=== PATIENT | female | born 1955 | race Caucasian/White ===

== ENCOUNTER 2020-05-09 10:28 | Emergency (ER) | payer MEDICARE, SELFPAY ==
--- NOTE | ~2020-05-09 | US_ITS ---
EXAMINATION: US right upper quadrant DATE: 05/09/2020 11:31 INDICATION: Postprandial epigastric pain. TECHNIQUE: Multiple grayscale and Doppler ultrasound images of the abdomen were obtained. COMPARISON: CT abdomen and pelvis dated 06/20/2017 FINDINGS: The pancreatic head and body are normal in appearance. The pancreatic tail is not visualized. Liver has normal echogenicity and contour, with a smooth surface. No liver lesion identified. No intrahepat ic biliary duct dilation suspected. Portal venous flow was seen in the hepatopetal, normal direction and has normal Doppler waveform. The gallbladder is normal in appearance. There is no cholelithiasis . The common bile duct measures 3 mm, which is normal. Sonographic Bustillo sign was reported as negati ve by the qa software test engineer. IMPRESSION: 1. Normal right upper quadrant ultrasound. Reviewed, dictated and finalized at location A.
--- NOTE | ~2020-05-09 | CT_ITS ---
EXAMINATION: CTA chest PE protocol EXAM DATE: 05/09/2020 16:53 INDICATION: Epigastric chest pain. TECHNIQUE: Spiral CTA of the chest (pulmonary arteries) was performed with 100 cc Omnipaque 350 intr avenous contrast injection. Images were acquired during the pulmonary arterial phase. Coronal maxi mum intensity projection 3D-reconstructions were created by the technologist on dedicated workstation . Axial, coronal and sagittal reformatted images were reviewed. The dose-length product (DLP) for t his examination was 674.16 mGy-cm. The exposure was tailored according to patient size (auto mA exp osure control), and iterative reconstruction (ASIR) was used as additional dose reduction technique. There is no prior study for comparison. FINDINGS: Pulmonary arteries are well opacified and without intraluminal filling defects. No thora cic aortic dissection. The lungs are clear. There are no pleural or pericardial effusions. Trach eobronchial tree is patent. There is no mediastinal, hilar or axillary lymphadenopathy. There is no pneumothorax. Heart normal in size. There is mild coronary arterial calcification, arterial sc lerosis. There is large sliding gastroesophageal hiatal hernia. Upper abdomen is unremarkable. The re is mild thoracic spondylosis without osteoblastic or osteolytic lesions identified. IMPRESSION: 1. No pulmonary emboli or acute intrathoracic findings. 2. Intrathoracic stomach. Reviewed, dictated and finalized at location A.
[2020-05-09 10:39] VITALS: BP 145/75; PULSE 99; RESP 18; TEMP 36.4; O2SAT 100
--- NOTE | 2020-05-09 10:59 | ECG_ITS ---
Measurements Intervals [place] Rate: 74 P: 34 UT: 195 QRS: 31 QRSD: 87 T: 21 QT: 388 QTc: 432 Interpretive Statements SINUS RHYTHM BASELINE ARTIFACT- I, II, III, AVR, AVL NORMAL ECG Electronically Signed On 05-09-2020 11:37:38 CDT by Maged العلي D.O.
--- NOTE | 2020-05-09 11:00 | ED.GENADULT ---
HPI - General Adult General Chief complaint: Abdominal Pain Stated complaint: poss gallbladder attack Time Seen by Provider: 05/09/20 10:40 Source: patient History of Present Illness HPI narrative: Patient is 64 y/o female complaining of epigastric pain starting 1-2 hours ago. She states her pain was like a pressure and it radiated to her chest and right shoulder. Pain lasted about 10 minutes and is resolved currently. She rates her pain as 8/10 when it occurred. She states that she has been having similar pain intermittent for 1 month, and it tends to occur after eating. She has some nausea, but no vomiting or diarrhea. Related Data Allergies Allergy/AdvReac Type Severity Reaction Status Date / Time Penicillins Allergy Unknown Unknown Verified 05/09/20 10:43 Review of Systems Constitutional: Constitutional: Denies chills, Denies fever(s), Denies headache(s) and Denies weakness Eyes: Eyes: Denies blurry vision ENT: Denies headache(s) and Denies neck pain Cardiovascular: Cardiovascular: Reports chest pain and Denies dyspnea Respiratory: Respiratory: Denies cough and Denies dyspnea Gastrointestinal: Gastrointestinal: Reports abdominal pain, Denies diarrhea, Reports nausea and Denies vomiting Genitourinary: Genitourinary: Denies hematuria and Denies dysuria Musculoskeletal: Musculoskeletal: Denies back pain and Denies neck pain Neurologic: Denies headache(s) and Denies weakness PMFSH Family History Family History Father Family history of diabetes mellitus in first degree relative Carcinoma of colon Sibling Family history of diabetes mellitus in first degree relative Diabetes mellitus Mother Family history of lung cancer Other Family history of lung disease Family history of malignant neoplasm Social History Social History Smoking status: Never smoker Second hand tobacco smoke exposure: No Alcohol intake: current Exam Const: General: no acute distress and well developed Orientation/consciousness: oriented to person, oriented to place, oriented to time and patient oriented x3 HENMT: Head: normocephalic Ears: external ears normal General nose exam: Normal external nose present Eyes: General: appearance normal, both eyes and all related structures Conjunctivae: conjunctivae normal Neck: Neck: normal visual inspection and full ROM Chest: Chest palpation & inspection: normal inspection of the chest and no tenderness Resp: Effort & Inspection: normal respiratory effort Auscultation: clear to auscultation bilaterally Cardio: Rate: regular rate Rhythm: regular rhythm GI: GI Palp: No abdominal tenderness and Yes Soft to palpation Skin: General skin exam: normal color and turgor normal Neuro: General: oriented to person, oriented to place, oriented to time and patient oriented x3 Cognition (Neuro): normal cognition Extrem: General: normal to inspection, full ROM and no pedal edema Psych: Appearance: grossly normal Mental Status: mental status grossly normal Affect: normal affect Course Vital Signs Vital signs: Vital Signs Temperature 36.4 C 05/09/20 10:39 Pulse Rate 99 05/09/20 10:39 Respiratory Rate 18 05/09/20 10:39 Blood Pressure 145/75 H 05/09/20 10:39 Pulse Oximetry 100 05/09/20 10:39 Temperature 36.4 C 05/09/20 10:39 Pulse Rate 80 05/09/20 17:28 Respiratory Rate 18 05/09/20 17:28 Blood Pressure 135/85 05/09/20 17:28 Pulse Oximetry 99 05/09/20 17:28 Medical Decision Making Vital Signs Vital Signs: Vital Signs Temperature 36.4 C 05/09/20 10:39 Pulse Rate 99 05/09/20 10:39 Respiratory Rate 18 05/09/20 10:39 Blood Pressure 145/75 H 05/09/20 10:39 Pulse Oximetry 100 05/09/20 10:39 Temperature 36.4 C 05/09/20 10:39 Pulse Rate 80 05/09/20 17:28 Respiratory Rate 18 05/09/20 17:28 Blood Pressure 135/85 1
[2020-05-09 11:18] LABS: Add Urine Microscopic? YES; Appearance Urine Clear (Clear); Bilirubin Urine Negative (Negative); Blood Urine Negative (Negative); Color Urine Straw (Yellow); Glucose Urine UA Negative (Negative); Ketones Urine Negative (Negative); Leukocyte Esterase Ur Trace LEU/UL (Negative); Nitrate Urine Negative (Negative); Protein Urine Negative (Negative); RBC Urine 0-2 /hpf (0-2); Specific Grav Ur 1.005 (1.001-1.035); Squamous Epithelial Cell Urine Moderate /hpf (Few); Urobilinogen Urine Negative mg/dL (<2.0)
[2020-05-09 11:26] LABS: Alanine Aminotransferase 25 U/L (4-35); Albumin Level 4.5 g/dL (3.5-5.1); Alkaline Phosphatase 125 U/L (38-126); Anion Gap 7 mmol/L (8-16); Aspartate Amino Transferase 40 U/L (14-36); Bilirubin,Total 0.8 mg/dL (0.2-1.3); Blood Urea Nitrogen 17 mg/dL (7-17); Calcium 10.1 mg/dL (8.4-10.2); Carbon Dioxide 28 mmol/L (22-30); Chloride 103 mmol/L (98-107); Estimated CRCL calculation 64 ml/min; Estimated Glomerular Filt Rate > 60; Glucose 102 mg/dL (65-105); Lipase 76 U/L (23-300); Potassium 4.1 mmol/L (3.4-5.0); Sodium 138 mmol/L (137-145)
[2020-05-09 11:45] LABS: Basophils Percent Auto 0.8 % (0.2-1.2); Eosinophils Absolute Auto 0.2 K/mm3 (0-0.3); Eosinophils Percent Auto 3.9 % (0-4.4); Hematocrit 36.5 % (37.0-47.0); Hemoglobin 11.7 g/dL (12.0-15.0); Immature Granulocyte Absolute 0.02 K/mm3 (0.00-0.031); Immature Granulocyte Percent A 0.4 % (0-0.5); Lymphocytes Absolute Auto 1.44 K/mm3 (0.9-3.2); Lymphocytes Percent Auto 27.1 % (18.3-44.2); Mean Corpuscular HGB Conc 32.1 g/dl (32-36); Mean Corpuscular Hemoglobin 24.9 pg (26-34); Mean Corpuscular Volume 77.7 fl (80-100); Mean Platelet Volume 10.3 fl (7.4-10.4); Monocytes Absolute Auto 0.5 K/mm3 (0.1-0.6); Monocytes Percent Auto 10.2 % (2.6-8.5); Neutrophils Absolute Auto 3.1 K/mm3 (1.3-6.7); Neutrophils Percent Auto 57.6 % (45.5-73.1); Platelet Count Result 305 k/mm3 (150-375); Red Cell Distribution Width 16.8 % (11.5-14.5); White Blood Count 5.3 K/mm3 (4.5-10.0)
[2020-05-09 11:50] LABS: Troponin I < 0.012 ng/mL (0.000-0.034)
[2020-05-09 12:51] VITALS: BP 125/82; PULSE 82; RESP 18; O2SAT 98
[2020-05-09] MEDS: BELLADONNA ALK/PHENOB ELIX 10 ML, MAG HYDROX/ALUMINUM HYD/SIMETH 30 ML, LIDOCAINE HCL 2... PO (13:07)
[2020-05-09 13:54] LABS: Troponin I < 0.012 ng/mL (0.000-0.034)
[2020-05-09 15:51] LABS: D Dimer 0.57 ug/mL (<0.48)
[2020-05-09 17:27] LABS: Troponin I < 0.012 ng/mL (0.000-0.034)
[2020-05-09 17:28] VITALS: BP 135/85; PULSE 80; RESP 18; O2SAT 99
== END 2020-05-09 17:30 | disposition home or self-care (01) ==
PROVIDERS: Emergency Provider Emergency Medicine; PCP Family Medicine
DX: R10.13 Epigastric pain (principal); R07.9 Chest pain, unspecified
CPT/HCPCS: 36415; 71275; 76705; 80053; 81001; 83690; 84484; 85025; 85380; 93005; 99284; A9270; Q9967

== ENCOUNTER 2020-05-25 01:50 | Outpatient (CLI) | payer MEDICARE, SELFPAY ==
[2020-05-25 22:35] LABS: SARS-CoV-2 RNA PCR Negative
== END 2020-05-25 01:51 | disposition home or self-care (01) ==
LOC: ANHCOVIDDT 01:50
PROVIDERS: PCP Family Medicine; Visit Provider Internal Medicine Gastroenterology
DX: Z01.812 Encounter for preprocedural laboratory examination (principal); Z20.828 Contact with and (suspected) exposure to other viral communicable diseases
CPT/HCPCS: 87635; C9803; U0003

== ENCOUNTER 2020-05-27 02:38 | Day surgery (SDC) | payer MEDICARE, SELFPAY ==
[2020-05-23 10:27] VITALS: BMI 35.4
[2020-05-27 06:32] VITALS: BP 144/74; PULSE 78; RESP 16; TEMP 36.4; O2SAT 100; BMI 36.5
[2020-05-27] MEDS: LACTATED RINGERS 1,000 ML 150 ML IV CONT (06:41)
--- NOTE | 2020-05-27 06:59 | WPDANESEPPF ---
Anes - Initial Pre Proc Eval Procedure: Operation Date: 05/27/20 07:30 Proposed Procedures p Esophagogastroduodenoscopy - Eric Craven MD Date/Time: 05/27/20 06:59 Surgeon: Eric Craven MD Pre Op Diagnosis: Abdomen pain Patient Data Age: 64 Gender: F Height: 5 ft 3 in Weight: 93.6 kg Last Vital Signs Temp 36.4 C 05/27/20 06:32 Pulse 78 05/27/20 06:32 Resp 16 05/27/20 06:32 BP 144/74 H 05/27/20 06:32 Pulse Ox 100 05/27/20 06:32 Allergies Allergy/AdvReac Type Severity Reaction Status Date / Time No Known Allergies Allergy Verified 05/27/20 06:30 Home Medications Medication Instructions Recorded Confirmed Type multivitamin 1 tablet PO DAILY #90 tablet 07/28/19 05/23/20 Rx atorvastatin 20 mg tablet 20 mg PO DAILY #90 tablet 02/06/20 05/23/20 Rx meloxicam 7.5 mg tablet 7.5 mg PO DAILY #30 tablet 02/08/20 05/23/20 Rx alprazolam 0.25 mg tablet 0.25 mg PO BID PRN #30 tablet 03/01/20 05/27/20 Rx bupropion HCl 150 mg 24 hr tablet, 150 mg PO QAM #30 tablet 03/08/20 05/23/20 Rx extended release lisinopril 10 mg tablet 10 mg PO DAILY #90 tablet 03/09/20 05/23/20 Rx omeprazole 40 mg capsule,delayed 40 mg PO DAILY #90 cap 03/09/20 05/23/20 Rx release furosemide 20 mg tablet See Rx Instructions .ROUTE 05/21/20 05/23/20 Rx .COMPLEX #30 tablet Lacto.acidophilus-Bif.animalis 1 cap PO DAILY 05/23/20 05/23/20 History [Daily Probiotic] aspirin [Adult Aspirin] 81 mg PO DAILY 05/23/20 05/23/20 History omega 2-mlq-iem-fish oil [[place]-3 1 cap PO DAILY 05/23/20 05/23/20 History Fish Oil] vitamin B complex [Super B Complex] 1 cap PO DAILY 05/23/20 05/27/20 History Patient hx anesthesia problems: none Family hx anesthesia problems: none [facility] Past Medical History Medical History (Updated 05/12/20 @ 13:55 by DAGMAR Hernández) GERD (gastroesophageal reflux disease) Hiatal hernia Obesity (BMI 30.0-34.9) Surgical History Surgical History (Updated 05/27/20 @ 07:04 by Marcin Hernandez MD) History of shoulder surgery S/P arthroscopic knee surgery Family History Family History Father Family history of diabetes mellitus in first degree relative Carcinoma of colon Sibling Family history of diabetes mellitus in first degree relative Diabetes mellitus Mother Family history of lung cancer Other Family history of lung disease Family history of malignant neoplasm Social History Social History Smoking status: Never smoker Second hand tobacco smoke exposure: No Alcohol intake: current Drinks per week: 2 Substance use: never Substance use type: does not use Living arrangements: with family Spiritual care concerns: No Anes - Eval Final PreProcedure Day of Procedure 05/27/20 06:59 Patient weight: obese Heart: regular rate and rhythm Lungs: clear to auscultation Airway: Mallampati scale class II Neurological: alert and oriented Last oral intake: >/= 8 hours ASA classification: III Emergent: no Anesthetic plan: proceed Anesthesia type and monitoring: general GIVS and standard monitoring Informed Consent: The patient's anesthetic plan and its attendant risks and benefits were discussed with the patient/family/POA. Questions were solicited and answers provided to the satisfaction of the patient/family/POA.
--- NOTE | 2020-05-27 07:35 | WPDHPUPDATE1 ---
History and Physical Update Update Date/Time: 05/27/20 07:35 History and Physical has been reviewed, including an updated exam of the patient. There are NO changes in the patient's condition. Risks, benefits, and alternatives have been discussed and questions answered. Patient agrees to proceed with procedure.
[2020-05-27 07:50] VITALS: BP 118/35; PULSE 77; RESP 27; O2SAT 96
[2020-05-27 08:00] VITALS: BP 121/51; PULSE 77; RESP 18; O2SAT 97
[2020-05-27 08:10] VITALS: BP 128/58; PULSE 70; RESP 18; O2SAT 97
== END 2020-05-27 08:25 | disposition home or self-care (01) ==
PROVIDERS: PCP Family Medicine; Visit Provider Internal Medicine Gastroenterology
PROC: 0DJ08ZZ Inspection of Upper Intestinal Tract, Via Natural or Artificial Opening Endoscopic (ICD-10-PCS; CPT 43235; principal; 2020-05-27 07:30)
DX: R10.9 Unspecified abdominal pain (principal); K44.9 Diaphragmatic hernia without obstruction or gangrene; K21.9 Gastro-esophageal reflux disease without esophagitis; K29.70 Gastritis, unspecified, without bleeding; I10 Essential (primary) hypertension; E66.9 Obesity, unspecified; E78.5 Hyperlipidemia, unspecified; Z80.0 Family history of malignant neoplasm of digestive organs
CPT/HCPCS: 43239; 88305; J2704; J7120

== ENCOUNTER 2021-01-11 08:06 | Outpatient (CLI) | payer MEDICARE, SELFPAY ==
--- NOTE | ~2021-01-11 | XR_ITS ---
EXAMINATION: XR UGIAC w barium swallow DATE: 01/11/2021 08:56 INDICATION: Diaphragmatic hernia without obstruction or gangrene TECHNIQUE: The patient drank thick barium, gas-producing crystals, and thin barium. Fluoroscopy of th e esophagus, stomach, and proximal small bowel were performed. Fluoroscopy exposure time was 1.3 marj seb. The DAP for this procedure was 14.046 Gycm2. COMPARISON: None. FINDINGS: There is no mass or stricture of the esophagus. Esophageal motility is normal. The stomach is intrathoracic in location with organoaxial volvulus. There was no visualized gastroesophageal refl ux. The stomach and proximal small bowel show normal folding patterns. IMPRESSION: 1. Intrathoracic stomach with organoaxial volvulus. Reviewed, dictated and finalized at location A.
== END 2021-01-11 08:07 | disposition home or self-care (01) ==
PROVIDERS: PCP Family Medicine; Visit Provider Surgery
DX: K44.9 Diaphragmatic hernia without obstruction or gangrene (principal)
CPT/HCPCS: 74246

== ENCOUNTER 2022-06-06 07:28 | Outpatient (CLI) | payer MEDICARE, SELFPAY ==
--- NOTE | ~2022-06-06 | XR_ITS ---
EXAMINATION: XR UGIAC w barium swallow DATE: 06/06/2022 08:08 INDICATION: Dysphagia. Gastroesophageal reflux disease. TECHNIQUE: The patient drank thick barium, gas-producing crystals, and thin barium. Fluoroscopy of th e esophagus, stomach, and proximal small bowel was performed. Fluoroscopy exposure time was 0.5 minut es. The total number of images was 237. Total dose-area product was 1.657 Gy-cm^2. COMPARISON: Upper gastrointestinal series 01/11/2021 FINDINGS: There is no mass or stricture of the esophagus. Esophageal motility is normal. There is no hiatal hernia. There are changes of fundoplication of the stomach. There was no gastroesophageal refl ux with provocative maneuvers. The proximal small bowel shows a normal folding pattern. IMPRESSION: 1. Normal upper gastrointestinal series status post fundoplication. Reviewed, dictated and finalized at location A. LEADER
== END 2022-06-06 07:29 | disposition home or self-care (01) ==
PROVIDERS: PCP Family Medicine; Visit Provider Nurse Practitioner
DX: K44.9 Diaphragmatic hernia without obstruction or gangrene (principal); K21.9 Gastro-esophageal reflux disease without esophagitis; R13.10 Dysphagia, unspecified; I10 Essential (primary) hypertension; Z68.34 Body mass index [BMI] 34.0-34.9, adult
CPT/HCPCS: 74246

== ENCOUNTER 2022-11-12 14:01 | Outpatient (CLI) | payer MEDICARE, SELFPAY ==
--- NOTE | ~2022-11-12 | XR_ITS ---
EXAMINATION: XR shoulder LT min 2V DATE: 11/12/2022 14:25 INDICATION: Left upper arm pain. TECHNIQUE: 4 views of left shoulder were obtained. COMPARISON: None. FINDINGS: Bone alignment is normal. No fracture. There is mild osteoarthritis of glenohumeral joint a nd acromioclavicular joint. IMPRESSION: 1. Mild polyarticular osteoarthritis. Reviewed, dictated and finalized at location A.
== END 2022-11-12 14:02 | disposition home or self-care (01) ==
PROVIDERS: PCP Family Medicine; Visit Provider Physician Assistant Medical
DX: M75.22 Bicipital tendinitis, left shoulder (principal); M19.012 Primary osteoarthritis, left shoulder
CPT/HCPCS: 73030

== ENCOUNTER 2024-03-30 13:02 | Emergency (ER) | payer MEDICARE, SELFPAY ==
[2024-03-30] VITALS (9 sets, daily range): BP systolic 132–160; BP diastolic 58–82; PULSE 67–82; RESP 14–20; TEMP 36.4–36.7; O2SAT 97–100
--- NOTE | 2024-03-30 13:21 | ECG_ITS ---
Test Date: 2024-03-30 13:27:41 Measurements Intervals [place] Rate: 74 P: 48 RI: 204 QRS: 24 QRSD: 101 T: 33 QT: 403 QTc: 449 Interpretive Statements SINUS RHYTHM VOLTAGE CRITERIA FOR LVH CONSIDER INFERIOR INFARCT, AGE INDETERMINATE BASELINE ARTIFACT- I, II, III, AVR, AVL, AVF ABNORMAL ECG No previous ECG available for comparison Electronically Signed On 03-30-2024 14:14:25 CDT by Maged العلي D.O.
[2024-03-30 13:35] LABS: Basophils Percent Auto 0.2 % (0.2-1.2); Eosinophils Percent Auto 0.4 % (0-4.4); Hemoglobin 12.5 g/dL (12.0-15.0); Immature Granulocyte Absolute 0.03 K/mm3 (0.00-0.031); Immature Granulocyte Percent A 0.4 % (0-0.5); Lymphocytes Absolute Auto 0.71 K/mm3 (0.9-3.2); Lymphocytes Percent Auto 8.6 % (18.3-44.2); Mean Corpuscular HGB Conc 32.1 g/dl (32-36); Mean Corpuscular Hemoglobin 29.1 pg (26-34); Mean Corpuscular Volume 90.9 fl (80-100); Monocytes Absolute Auto 0.3 K/mm3 (0.1-0.6); Monocytes Percent Auto 3.6 % (2.6-8.5); Neutrophils Absolute Auto 7.1 K/mm3 (1.3-6.7); Neutrophils Percent Auto 86.8 % (45.5-73.1); Platelet Count Result 207 k/mm3 (150-375); Red Blood Count 4.29 M/mm3 (4.2-5.4); Red Cell Distribution Width 13.4 % (11.5-14.5); White Blood Count 8.2 K/mm3 (4.5-10.0)
[2024-03-30 13:48] LABS: Alanine Aminotransferase 23 U/L (6-35); Albumin Level 4.3 g/dL (3.5-5.1); Alkaline Phosphatase 108 U/L (38-126); Anion Gap 6 mmol/L (4-12); Aspartate Amino Transferase 32 U/L (14-36); Bilirubin,Total 0.6 mg/dL (0.2-1.3); Blood Urea Nitrogen 36 mg/dL (7-17); Calcium 9.4 mg/dL (8.4-10.2); Carbon Dioxide 26 mmol/L (22-30); Chloride 97 mmol/L (98-107); Estimated CRCL calculation 61 ml/min; Estimated Glomerular Filt Rate > 60; Glucose 191 mg/dL (65-110); Potassium 3.9 mmol/L (3.4-5.0); Sodium 129 mmol/L (137-145)
[2024-03-30 14:00] LABS: Troponin I < 0.012 ng/mL (0.000-0.034)
[2024-03-30] MEDS: MECLIZINE HCL 25 MG TABLET PO (17:07)
--- NOTE | 2024-03-30 17:08 | ED.GENADULT ---
HPI - General Adult General Chief complaint: Dizziness Stated complaint: dizzy, nausea Time Seen by Provider: 03/30/24 16:28 History of Present Illness HPI narrative: Patient is a 68-year-old female who presents emergency department with chief complaint of dizziness. Patient reports that she has been having rotational symptoms started today reports that it has improved since she has arrived to the emergency department. 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 Patient reports she had nausea with this denies syncope denies focal neurological deficit. Related Data Home Medications Medication Instructions Recorded Confirmed Lactobacillus 1 cap PO DAILY 05/23/20 10/30/23 acidophilus-Bifidobac.animalis 2.5 billion cell capsule (Daily Probiotic) aspirin 81 mg tablet 81 mg PO DAILY 05/23/20 10/30/23 omega 0-mzh-ejb-fish oil 910 1 cap PO DAILY 05/23/20 10/30/23 mg-1,400 mg capsule ([place]-3 Fish Oil) vitamins A,C,Q-mojs-hifocc 4,296 1 cap PO .QD 04/02/23 10/30/23 mcg-226 mg-90 mg capsule (PreserVision AREDS) Allergies Allergy/AdvReac Type Severity Reaction Status Date / Time No Known Allergies Allergy Verified 10/30/23 07:28 Review of Systems Review of Systems: A 10 system review of systems was completed on the patient and is negative except for what is stated in the HPI. Nursing and ancillary documentation was reviewed. [facility] Past Medical History Medical History Anxiety and depression BMI 34.0-34.9,adult BMI 36.0-36.9,adult Colon cancer screening Constipation Dysphagia Essential hypertension GERD (gastroesophageal reflux disease) Globus syndrome Hiatal hernia Hyperlipidemia Obesity (BMI 30.0-34.9) Shingles rash Surgical History Surgical History H/O hernia repair History of ear surgery History of shoulder surgery S/P arthroscopic knee surgery Family History Family History Sibling Family history of diabetes mellitus in first degree relative Diabetes mellitus Thyroid activity decreased Heart disease Mother , age 74 Family history of lung cancer Father Carcinoma of colon Diabetes mellitus Heart disease Other Family history of lung disease Family history of malignant neoplasm Social History Social History Smoking status: Never smoker Second hand tobacco smoke exposure: No Alcohol intake: current Drinks per week: 2 Substance use: never Substance use type: does not use Lack of Transportation: No Lack of Food: Never True Current Housing: I Have Housing Concerned About Future Housing: No Difficulty Paying Gas/Electric Bills: No Difficulty Paying for Meds: No Currently Unemployed: No Education: High School Diploma/GED Difficulty w/ Childcare or Family Care: No Living arrangements: with family Occupation/Education: retired 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 HEAD: Normocephalic, atraumatic. EYES: PERRLA and EOMI. ENT: Nares clear, no rhinorrhea or epistaxis. Mucous membranes moist. NECK: Supple. CHEST: Clear to auscultation. No respiratory distress. HEART: Regular rate and rhythm. No murmur heard. Normal peripheral pulses. ABDOMEN: Soft, nontender, nondistended, normal active bowel sounds. EXTREMITIES: Normal range of motion. No edema. SKIN: Warm, dry, no rash. NEURO: No focal deficits. Alert and oriented x3. Positive Hallpike to the right PSYCH: Normal mood and affect. Course Vital Signs Vital signs: Vital Signs
[2024-03-30] MEDS: SODIUM CHLORIDE 0.9% IV 1,000 ML 999 ML IV CONT (17:23)
== END 2024-03-30 19:11 | disposition home or self-care (01) ==
PROVIDERS: Emergency Provider Emergency Medicine; PCP Family Medicine
DX: R42 Dizziness and giddiness (principal); R41.9 Unspecified symptoms and signs involving cognitive functions and awareness; F32.A Depression, unspecified; I10 Essential (primary) hypertension; K21.9 Gastro-esophageal reflux disease without esophagitis; E78.5 Hyperlipidemia, unspecified
CPT/HCPCS: 36415; 80053; 84484; 85025; 93005; 96360; 99284; A9270; J7030

== ENCOUNTER 2025-06-29 13:59 | Outpatient (CLI) | payer MEDICARE, SELFPAY ==
--- NOTE | ~2025-06-29 | XR_ITS ---
EXAMINATION: XR hip LT min 2V, 06/29/2025 14:17 ADMINISTRATIVE ASSISTANT RECEPTIONIST HISTORY: S79.912A - Unspecified injury of left hip, initial encounter COMPARISON: No comparisons available. Findings: No acute fracture or malalignment. Moderate degenerative changes Soft tissues unremarkable. Impression: No acute fracture or malalignment. Reviewed, dictated and finalized at location P. NISTRATIVE ASSISTANT RECEPTIONIST Impression: No acute fracture or malalignment.
== END 2025-06-29 14:00 | disposition home or self-care (01) ==
LOC: MICIMG 14:01
PROVIDERS: PCP Family Medicine; Visit Provider Nurse Practitioner Adult Health
DX: S79.912A Unspecified injury of left hip, initial encounter (principal); S30.13XA Contusion of flank (latus) region, initial encounter; X58.XXXA Exposure to other specified factors, initial encounter
CPT/HCPCS: 73502